=== PATIENT | male | born 1960 | race Caucasian/White ===

== ENCOUNTER 2022-06-15 21:35 | Inpatient (IN) ==
[2022-06-15 22:16] LABS: Basophils # 0.1 K/mcL (0.0-0.2); Basophils % 0.5 %; Eosinophils # 0.3 K/mcL (0.0-0.6); Hematocrit 44.1 % (37.5-50.1); Hemoglobin 14.5 g/dL (12.9-16.9); Immature Granulocytes % 0.3 % (0-4); Lymphocytes # 3.6 K/mcL (0.6-4.6); Lymphocytes % 20.7 %; Mean Corpuscular HGB Conc 32.9 g/dL (31.6-35.5); Mean Corpuscular Volume 94.2 fL (83.0-100.0); Monocytes # 1.2 K/mcL (0.0-1.3); Monocytes % 6.6 %; Neutrophils # 12.1 K/mcL (1.6-8.9); Platelet Count 204 K/mcL (140-400); Red Blood Count 4.68 M/mcL (4.19-5.50); Red Cell Distribution Width 14.8 % (11.5-14.5); Segmented Neutrophils % 69.9 %; White Blood Count 17.4 K/mcL (4.3-11.1)
[2022-06-15 22:37] LABS: BUN/Creatinine Ratio 15 (6-26); Blood Urea Nitrogen 20 mg/dL (8-23); Calcium 9.4 mg/dL (8.6-10.3); Carbon Dioxide 24 mEq/L (23-29); Chloride 106 mEq/L (98-107); Glucose 106 mg/dL (70-105); Osmolality,Calculated 291 (280-300); Sodium 139 mEq/L (136-145); eGFR For African Americans > 60 (> 60); eGFR For Non-African Americans 53 (> 60)
[2022-06-15 22:38] LABS: Troponin I < 0.03 ng/mL (< 0.04)
[2022-06-16] MEDS ORDERED: Ondansetron 4 MG/2 ML VIAL IVP PRN ×3 (00:49→13:33)
[2022-06-16] MEDS ORDERED: Pantoprazole 40 MG VIAL IVP ONE (03:24)
[2022-06-16] MEDS ORDERED: Piperacillin/Tazobactam 3.375 GM in 0.9 % Sodium Chloride Mini Bag 100 ML IVPB ONE (03:24)
[2022-06-16] MEDS ORDERED: Morphine Sulfate 2 MG/ML SYRINGE IVP ONE ×2 (03:25→06:58)
[2022-06-16] MEDS ORDERED: Metoclopramide 10 MG/2 ML VIAL IVP ONE (03:25)
[2022-06-16] MEDS ORDERED: 0.9 % Sodium Chloride 1,000 ML IV ONE ×2 (03:28→06:58)
[2022-06-16] MEDS ORDERED: Iopamidol - 370 500 ML MLS IVP ONE (06:04)
[2022-06-16] MEDS ORDERED: Heparin 1,000 UNITS/500 mL 500 ML ONE (07:23)
[2022-06-16] MEDS ORDERED: *HR* Norepinephrine 4 MG/4 ML VIAL IVC ONE (07:46)
[2022-06-16] MEDS ORDERED: *HR* Vasopressin 20 UNIT/ML VIAL ONE (07:47)
[2022-06-16] MEDS ORDERED: *HR* Rocuronium Bromide 50 MG/5 ML VIAL ONE ×4 (08:53→12:11)
[2022-06-16] MEDS ORDERED: *HR* FentaNYL (PF) 100 MCG/2 ML VIAL ONE ×3 (08:57→11:02)
[2022-06-16] MEDS ORDERED: *HR* Propofol 200 MG/20 ML VIAL IVP ONE (09:07)
[2022-06-16] MEDS ORDERED: Lidocaine -MPF 2% 5 ML VIAL ONE (09:09)
[2022-06-16] MEDS ORDERED: Ondansetron 4 MG/2 ML VIAL ONE (09:09)
[2022-06-16] MEDS ORDERED: Sugammadex Sodium 200 MG/2 ML VIAL IV ONE (12:25)
[2022-06-16] MEDS ORDERED: *HR* HYDROMORPHONE 2 MG/ML VIAL ONE (12:41)
[2022-06-16] MEDS ORDERED: *HR* HYDROmorphone PCA *PREMADE* 20 MG/1MG/ML (20mL) PCA VIAL IVC SCH (13:33)
[2022-06-16] MEDS ORDERED: Naloxone 0.4 MG/ML INJ IVP PRN (13:33)
[2022-06-16] MEDS: 0.9 % Sodium Chloride 1,000 ML IVC SCH ×2 (14:22→21:59)
[2022-06-16] MEDS: *HR* Heparin 5,000 UNIT/ML VIAL SQ SCH ×2 (14:23→21:06)
[2022-06-16 14:30] LABS: Hematocrit 41.7 % (37.5-50.1); Hemoglobin 13.5 g/dL (12.9-16.9); Mean Corpuscular HGB Conc 32.4 g/dL (31.6-35.5); Mean Corpuscular Hemoglobin 30.5 pg (28.0-33.3); Mean Corpuscular Volume 94.3 fL (83.0-100.0); Mean Platelet Volume 10.2 fL (9.4-12.4); Platelet Count 170 K/mcL (140-400); Red Blood Count 4.42 M/mcL (4.19-5.50); White Blood Count 18.8 K/mcL (4.3-11.1)
[2022-06-16 14:49] LABS: BUN/Creatinine Ratio 16 (6-26); Blood Urea Nitrogen 17 mg/dL (8-23); Calcium 7.8 mg/dL (8.6-10.3); Carbon Dioxide 21 mEq/L (23-29); Chloride 108 mEq/L (98-107); Glucose 171 mg/dL (70-105); Magnesium 1.2 mg/dL (1.6-2.6); Osmolality,Calculated 290 (280-300); Phosphorous 3.7 mg/dL (2.7-4.5); Potassium 4.5 mEq/L (3.5-5.1); Sodium 137 mEq/L (136-145); eGFR For African Americans > 60 (> 60); eGFR For Non-African Americans > 60 (> 60)
[2022-06-16] MEDS: Ipratropium/Albuterol Neb 3 ML IH SCH ×3 (15:35→23:31)
[2022-06-16] MEDS: Piperacillin/Tazobactam 3.375 GM in 0.9 % Sodium Chloride Mini Bag 100 ML IVPB SCH ×2 (15:48→23:31)
[2022-06-16] MEDS ORDERED: Naloxone 0.4 MG/ML INJ IVP ONE (17:33)
[2022-06-16 17:50] LABS: ABG Base Excess -6 mEq/L (-2 to 3); ABG HCO3 19 mEq/L (21-27); ABG Oxygen Saturation 92 % (95-98); ABG PCO2 35 mmHg (35-45); ABG PH 7.35 pH Units (7.32-7.45); ABG PO2 65 mmHg (85-104); ABG TCO2 20 mEq/L (20-26)
[2022-06-16] MEDS ORDERED: *HR* Metoprolol 5 MG/5 ML VIAL IVP SCH (18:00)
[2022-06-17] MEDS: Ipratropium/Albuterol Neb 3 ML IH SCH ×6 (03:41→22:53)
[2022-06-17] MEDS: *HR* HYDROmorphone (PF) 1 MG/ML SYRINGE IVP PRN ×2 (04:52→08:05)
[2022-06-17 05:05] LABS: Hematocrit 37.4 % (37.5-50.1); Hemoglobin 12.5 g/dL (12.9-16.9); Mean Corpuscular HGB Conc 33.4 g/dL (31.6-35.5); Mean Corpuscular Hemoglobin 31.3 pg (28.0-33.3); Mean Corpuscular Volume 93.7 fL (83.0-100.0); Platelet Count 155 K/mcL (140-400); Red Blood Count 3.99 M/mcL (4.19-5.50); Red Cell Distribution Width 15.1 % (11.5-14.5); White Blood Count 17.5 K/mcL (4.3-11.1)
[2022-06-17] MEDS: *HR* Heparin 5,000 UNIT/ML VIAL SQ SCH ×3 (05:11→22:33)
[2022-06-17] MEDS: 0.9 % Sodium Chloride 1,000 ML IVC SCH ×2 (05:12→14:22)
[2022-06-17 05:25] LABS: BUN/Creatinine Ratio 16 (6-26); Blood Urea Nitrogen 15 mg/dL (8-23); Calcium 7.6 mg/dL (8.6-10.3); Carbon Dioxide 20 mEq/L (23-29); Chloride 109 mEq/L (98-107); Glucose 145 mg/dL (70-105); Magnesium 2.3 mg/dL (1.6-2.6); Osmolality,Calculated 285 (280-300); Phosphorous 2.9 mg/dL (2.7-4.5); Potassium 4.3 mEq/L (3.5-5.1); Sodium 136 mEq/L (136-145); eGFR For African Americans > 60 (> 60); eGFR For Non-African Americans > 60 (> 60)
[2022-06-17] MEDS: Piperacillin/Tazobactam 3.375 GM in 0.9 % Sodium Chloride Mini Bag 100 ML IVPB SCH ×2 (08:07→17:30)
[2022-06-17] MEDS: Fluconazole 400 MG/200 ML 400 MG/200 ML BAG IVPB SCH (08:13)
[2022-06-17] MEDS: Pantoprazole 40 MG VIAL IVP SCH (08:14)
[2022-06-17] MEDS ORDERED: Fluconazole 400 MG/200 ML 400 MG/200 ML BAG IVPB ONE (09:30)
[2022-06-17] MEDS: *HR* HYDROmorphone PCA *PREMADE* 20 MG/1MG/ML (20mL) PCA VIAL IVC SCH (11:11)
[2022-06-17] MEDS ORDERED: *HR* Dextrose 50 % in Water (Syg) 50 ML SYRINGE IVP PRN (11:37)
[2022-06-17] MEDS ORDERED: D5% in Water 1,000 ML IVC PRN (11:37)
[2022-06-17] MEDS ORDERED: Dextrose Gel 15 GM/37.5 ML TUBE PO PRN ×2 (11:37)
[2022-06-17] MEDS: *HR* Metoprolol 5 MG/5 ML VIAL IVP SCH ×2 (13:11→18:03)
[2022-06-17] MEDS: Insulin LISPRO 300 UNITS/3 ML VIAL SUBQ SCH ×2 (13:12→17:42)
[2022-06-17] MEDS ORDERED: 0.9 % Sodium Chloride 1,000 ML ONE (13:44)
[2022-06-17] MEDS ORDERED: [UNRECOGNIZED DRUG - OTHER] IV SCH (17:00)
[2022-06-17] MEDS ORDERED: AMINO ACIDS IV SCH (17:00)
[2022-06-17] MEDS ORDERED: Clinimix E 5%-15% SOLUTION 2,000 ML with MVI, adult with vitamin K 10 ML IV SCH (17:00)
[2022-06-17] MEDS ORDERED: DEXTROSE 15% IV SCH (17:00)
[2022-06-17] MEDS ORDERED: MVI IV SCH (17:00)
[2022-06-18] MEDS: Piperacillin/Tazobactam 3.375 GM in 0.9 % Sodium Chloride Mini Bag 100 ML IVPB SCH ×4 (00:18→23:10)
[2022-06-18] MEDS: Insulin LISPRO 300 UNITS/3 ML VIAL SUBQ SCH ×5 (00:19→23:09)
[2022-06-18] MEDS: *HR* Metoprolol 5 MG/5 ML VIAL IVP SCH ×5 (00:20→23:09)
[2022-06-18 04:13] LABS: Hematocrit 31.9 % (37.5-50.1); Mean Corpuscular HGB Conc 32.9 g/dL (31.6-35.5); Mean Corpuscular Hemoglobin 31.2 pg (28.0-33.3); Mean Corpuscular Volume 94.7 fL (83.0-100.0); Mean Platelet Volume 10.3 fL (9.4-12.4); Platelet Count 136 K/mcL (140-400); Red Blood Count 3.37 M/mcL (4.19-5.50); Red Cell Distribution Width 15.3 % (11.5-14.5); White Blood Count 16.1 K/mcL (4.3-11.1)
[2022-06-18 04:17] LABS: Hemoglobin 10.5 g/dL (12.9-16.9)
[2022-06-18] MEDS: Ipratropium/Albuterol Neb 3 ML IH SCH ×7 (04:22→23:23)
[2022-06-18 04:37] LABS: BUN/Creatinine Ratio 22 (6-26); Blood Urea Nitrogen 19 mg/dL (8-23); Carbon Dioxide 25 mEq/L (23-29); Chloride 107 mEq/L (98-107); Chol/HDL Ratio 4.1 (0-4.9); Cholesterol 103 mg/dL (< 200); Glucose 142 mg/dL (70-105); HDL Cholesterol 25 mg/dL (40-59); LDL Cholesterol,Calculated 35 mg/dL (< 100); Magnesium 2.1 mg/dL (1.6-2.6); Osmolality,Calculated 287 (280-300); Phosphorous 2.3 mg/dL (2.7-4.5); Potassium 3.7 mEq/L (3.5-5.1); Sodium 136 mEq/L (136-145); Triglycerides 214 mg/dL (< 150); Vancomycin,Trough 12 mcg/mL (5-10); eGFR For African Americans > 60 (> 60); eGFR For Non-African Americans > 60 (> 60)
[2022-06-18] MEDS: *HR* Heparin 5,000 UNIT/ML VIAL SQ SCH ×3 (05:24→21:06)
[2022-06-18] MEDS: Fluconazole 400 MG/200 ML 400 MG/200 ML BAG IVPB SCH (07:53)
[2022-06-18] MEDS: Pantoprazole 40 MG VIAL IVP SCH (07:53)
[2022-06-18] MEDS: 0.9 % Sodium Chloride 1,000 ML IVC SCH (11:50)
[2022-06-18] MEDS ORDERED: Clinimix E 5%-15% SOLUTION 2,000 ML with MVI, adult with vitamin K 10 ML IV SCH (17:00)
[2022-06-18] MEDS: *HR* HYDROmorphone PCA *PREMADE* 20 MG/1MG/ML (20mL) PCA VIAL IVC SCH (20:19)
[2022-06-19 03:27] LABS: Hematocrit 33.3 % (37.5-50.1); Hemoglobin 11.1 g/dL (12.9-16.9); Mean Corpuscular HGB Conc 33.3 g/dL (31.6-35.5); Mean Corpuscular Hemoglobin 31.3 pg (28.0-33.3); Mean Corpuscular Volume 93.8 fL (83.0-100.0); Mean Platelet Volume 10.5 fL (9.4-12.4); Platelet Count 140 K/mcL (140-400); Red Blood Count 3.55 M/mcL (4.19-5.50); Red Cell Distribution Width 14.8 % (11.5-14.5); White Blood Count 15.9 K/mcL (4.3-11.1)
[2022-06-19] MEDS: Ipratropium/Albuterol Neb 3 ML IH SCH ×6 (03:30→23:11)
[2022-06-19 03:46] LABS: BUN/Creatinine Ratio 23 (6-26); Blood Urea Nitrogen 19 mg/dL (8-23); Calcium 8.6 mg/dL (8.6-10.3); Carbon Dioxide 24 mEq/L (23-29); Chloride 103 mEq/L (98-107); Glucose 111 mg/dL (70-105); Magnesium 1.8 mg/dL (1.6-2.6); Osmolality,Calculated 283 (280-300); Phosphorous 2.8 mg/dL (2.7-4.5); Potassium 4.5 mEq/L (3.5-5.1); Sodium 135 mEq/L (136-145); eGFR For African Americans > 60 (> 60); eGFR For Non-African Americans > 60 (> 60)
[2022-06-19] MEDS: *HR* Metoprolol 5 MG/5 ML VIAL IVP SCH ×3 (05:00→18:08)
[2022-06-19] MEDS: *HR* Heparin 5,000 UNIT/ML VIAL SQ SCH ×3 (05:01→22:42)
[2022-06-19] MEDS: Insulin LISPRO 300 UNITS/3 ML VIAL SUBQ SCH ×4 (05:01→22:43)
[2022-06-19] MEDS: Piperacillin/Tazobactam 3.375 GM in 0.9 % Sodium Chloride Mini Bag 100 ML IVPB SCH ×2 (07:56→16:05)
[2022-06-19] MEDS: Fluconazole 400 MG/200 ML 400 MG/200 ML BAG IVPB SCH (07:57)
[2022-06-19] MEDS: Pantoprazole 40 MG VIAL IVP SCH (07:57)
[2022-06-19] MEDS: 0.9 % Sodium Chloride 1,000 ML IVC SCH (12:07)
[2022-06-19] MEDS: *HR* HYDROmorphone PCA *PREMADE* 20 MG/1MG/ML (20mL) PCA VIAL IVC SCH (16:56)
[2022-06-19] MEDS ORDERED: Clinimix E 5%-15% SOLUTION 2,000 ML with MVI, adult with vitamin K 10 ML IV SCH (17:00)
[2022-06-20] MEDS: Piperacillin/Tazobactam 3.375 GM in 0.9 % Sodium Chloride Mini Bag 100 ML IVPB SCH ×3 (00:29→16:01)
[2022-06-20] MEDS: *HR* Metoprolol 5 MG/5 ML VIAL IVP SCH ×5 (00:30→21:12)
[2022-06-20] MEDS: Ipratropium/Albuterol Neb 3 ML IH SCH ×6 (04:44→23:02)
[2022-06-20] MEDS: *HR* Heparin 5,000 UNIT/ML VIAL SQ SCH ×2 (05:04→14:05)
[2022-06-20] MEDS: Insulin LISPRO 300 UNITS/3 ML VIAL SUBQ SCH ×3 (05:05→18:06)
[2022-06-20 07:19] LABS: Hematocrit 35.5 % (37.5-50.1); Hemoglobin 11.9 g/dL (12.9-16.9); Immature Platelets 4.5 % (1.1-6.1); Mean Corpuscular HGB Conc 33.5 g/dL (31.6-35.5); Mean Corpuscular Hemoglobin 30.9 pg (28.0-33.3); Mean Corpuscular Volume 92.2 fL (83.0-100.0); Mean Platelet Volume 10.2 fL (9.4-12.4); Red Blood Count 3.85 M/mcL (4.19-5.50); Red Cell Distribution Width 14.7 % (11.5-14.5); White Blood Count 11.6 K/mcL (4.3-11.1)
[2022-06-20 07:29] LABS: BUN/Creatinine Ratio 24 (6-26); Blood Urea Nitrogen 20 mg/dL (8-23); Calcium 8.8 mg/dL (8.6-10.3); Carbon Dioxide 21 mEq/L (23-29); Chloride 105 mEq/L (98-107); Glucose 106 mg/dL (70-105); Magnesium 1.7 mg/dL (1.6-2.6); Osmolality,Calculated 285 (280-300); Phosphorous 3.8 mg/dL (2.7-4.5); Potassium 4.1 mEq/L (3.5-5.1); Sodium 136 mEq/L (136-145); eGFR For African Americans > 60 (> 60); eGFR For Non-African Americans > 60 (> 60)
[2022-06-20] MEDS: Fluconazole 400 MG/200 ML 400 MG/200 ML BAG IVPB SCH (08:24)
[2022-06-20] MEDS: Pantoprazole 40 MG VIAL IVP SCH (08:24)
[2022-06-20] MEDS: 0.9 % Sodium Chloride 1,000 ML IVC SCH (11:59)
[2022-06-20] MEDS ORDERED: Lidocaine -MPF 1% 5 ML AMPUL INFILT ONE (12:53)
[2022-06-20] MEDS: Nicotine 21 MG PATCH.TD24 TD SCH (16:02)
[2022-06-20] MEDS ORDERED: Clinimix E 5%-15% SOLUTION 2,000 ML with MVI, adult with vitamin K 10 ML IV SCH (17:00)
[2022-06-21] MEDS: *HR* Heparin 5,000 UNIT/ML VIAL SQ SCH ×4 (00:07→22:09)
[2022-06-21] MEDS: *HR* Metoprolol 5 MG/5 ML VIAL IVP SCH ×5 (00:07→23:57)
[2022-06-21] MEDS: Piperacillin/Tazobactam 3.375 GM in 0.9 % Sodium Chloride Mini Bag 100 ML IVPB SCH ×4 (00:07→23:57)
[2022-06-21] MEDS: *HR* HYDROmorphone PCA *PREMADE* 20 MG/1MG/ML (20mL) PCA VIAL IVC SCH ×2 (00:10→22:08)
[2022-06-21] MEDS: Insulin LISPRO 300 UNITS/3 ML VIAL SUBQ SCH ×5 (00:11→23:59)
[2022-06-21] MEDS: Ipratropium/Albuterol Neb 3 ML IH SCH ×6 (03:36→23:42)
[2022-06-21 03:52] LABS: Hemoglobin 11.7 g/dL (12.9-16.9); Mean Corpuscular HGB Conc 33.4 g/dL (31.6-35.5); Mean Corpuscular Volume 92.8 fL (83.0-100.0); Mean Platelet Volume 10.4 fL (9.4-12.4); Platelet Count 167 K/mcL (140-400); Red Blood Count 3.77 M/mcL (4.19-5.50); Red Cell Distribution Width 14.7 % (11.5-14.5); White Blood Count 11.8 K/mcL (4.3-11.1)
[2022-06-21 05:06] LABS: BUN/Creatinine Ratio 23 (6-26); Blood Urea Nitrogen 20 mg/dL (8-23); Calcium 9.1 mg/dL (8.6-10.3); Carbon Dioxide 23 mEq/L (23-29); Chloride 102 mEq/L (98-107); Glucose 190 mg/dL (70-105); Magnesium 1.8 mg/dL (1.6-2.6); Osmolality,Calculated 288 (280-300); Phosphorous 4.2 mg/dL (2.7-4.5); Potassium 3.8 mEq/L (3.5-5.1); Sodium 135 mEq/L (136-145); eGFR For African Americans > 60 (> 60); eGFR For Non-African Americans > 60 (> 60)
[2022-06-21] MEDS: Pantoprazole 40 MG VIAL IVP SCH (09:49)
[2022-06-21] MEDS: Nicotine 21 MG PATCH.TD24 TD SCH (10:04)
[2022-06-21] MEDS: Fluconazole 400 MG/200 ML 400 MG/200 ML BAG IVPB SCH (11:23)
[2022-06-21] MEDS: 0.9 % Sodium Chloride 1,000 ML IVC SCH (13:48)
[2022-06-21] MEDS ORDERED: Clinimix E 5%-15% SOLUTION 2,000 ML with MVI, adult with vitamin K 10 ML IV SCH (17:00)
[2022-06-22] MEDS: Insulin LISPRO 300 UNITS/3 ML VIAL SUBQ SCH (04:15)
[2022-06-22] MEDS: Ipratropium/Albuterol Neb 3 ML IH SCH ×6 (04:31→22:54)
[2022-06-22 04:33] LABS: Hematocrit 34.8 % (37.5-50.1); Hemoglobin 11.5 g/dL (12.9-16.9); Mean Corpuscular Hemoglobin 30.2 pg (28.0-33.3); Mean Corpuscular Volume 91.3 fL (83.0-100.0); Mean Platelet Volume 10.7 fL (9.4-12.4); Platelet Count 170 K/mcL (140-400); Red Blood Count 3.81 M/mcL (4.19-5.50); Red Cell Distribution Width 14.6 % (11.5-14.5); White Blood Count 14.9 K/mcL (4.3-11.1)
[2022-06-22 04:47] LABS: BUN/Creatinine Ratio 26 (6-26); Blood Urea Nitrogen 21 mg/dL (8-23); Calcium 8.8 mg/dL (8.6-10.3); Carbon Dioxide 21 mEq/L (23-29); Chloride 103 mEq/L (98-107); Glucose 133 mg/dL (70-105); Magnesium 1.8 mg/dL (1.6-2.6); Osmolality,Calculated 283 (280-300); Phosphorous 3.9 mg/dL (2.7-4.5); Potassium 3.8 mEq/L (3.5-5.1); Sodium 134 mEq/L (136-145); eGFR For African Americans > 60 (> 60); eGFR For Non-African Americans > 60 (> 60)
[2022-06-22] MEDS: *HR* Metoprolol 5 MG/5 ML VIAL IVP SCH ×3 (05:32→17:15)
[2022-06-22] MEDS: *HR* Heparin 5,000 UNIT/ML VIAL SQ SCH ×3 (05:32→20:26)
[2022-06-22] MEDS: *HR* HYDROmorphone PCA *PREMADE* 20 MG/1MG/ML (20mL) PCA VIAL IVC SCH (08:01)
[2022-06-22] MEDS: Fluconazole 400 MG/200 ML 400 MG/200 ML BAG IVPB SCH (08:02)
[2022-06-22] MEDS: Nicotine 21 MG PATCH.TD24 TD SCH (08:02)
[2022-06-22] MEDS: Pantoprazole 40 MG VIAL IVP SCH (08:02)
[2022-06-22] MEDS: Piperacillin/Tazobactam 3.375 GM in 0.9 % Sodium Chloride Mini Bag 100 ML IVPB SCH ×2 (08:03→17:16)
[2022-06-22] MEDS ORDERED: *HR* OxyCODONE Oral Soln 5 MG/5 ML UD.LIQ PO PRN (10:48)
[2022-06-22] MEDS: Docusate Oral Soln 100 MG/10 ML UDC PO SCH ×2 (12:30→20:20)
[2022-06-22] MEDS ORDERED: Clinimix E 5%-15% SOLUTION 2,000 ML with MVI, adult with vitamin K 10 ML IV SCH (17:00)
[2022-06-23] MEDS: *HR* Metoprolol 5 MG/5 ML VIAL IVP SCH ×4 (00:38→16:18)
[2022-06-23] MEDS: Piperacillin/Tazobactam 3.375 GM in 0.9 % Sodium Chloride Mini Bag 100 ML IVPB SCH ×2 (00:38→07:20)
[2022-06-23] MEDS: Ipratropium/Albuterol Neb 3 ML IH SCH ×6 (04:02→23:41)
[2022-06-23 04:59] LABS: Hematocrit 34.3 % (37.5-50.1); Hemoglobin 11.3 g/dL (12.9-16.9); Mean Corpuscular HGB Conc 32.9 g/dL (31.6-35.5); Mean Corpuscular Hemoglobin 30.5 pg (28.0-33.3); Mean Corpuscular Volume 92.5 fL (83.0-100.0); Mean Platelet Volume 10.7 fL (9.4-12.4); Platelet Count 178 K/mcL (140-400); Red Blood Count 3.71 M/mcL (4.19-5.50); Red Cell Distribution Width 14.8 % (11.5-14.5); White Blood Count 17.8 K/mcL (4.3-11.1)
[2022-06-23 05:37] LABS: BUN/Creatinine Ratio 25 (6-26); Blood Urea Nitrogen 22 mg/dL (8-23); Calcium 8.8 mg/dL (8.6-10.3); Carbon Dioxide 18 mEq/L (23-29); Chloride 106 mEq/L (98-107); Glucose 99 mg/dL (70-105); Magnesium 1.8 mg/dL (1.6-2.6); Osmolality,Calculated 283 (280-300); Phosphorous 3.6 mg/dL (2.7-4.5); Potassium 3.7 mEq/L (3.5-5.1); Sodium 135 mEq/L (136-145); eGFR For African Americans > 60 (> 60); eGFR For Non-African Americans > 60 (> 60)
[2022-06-23] MEDS: *HR* Heparin 5,000 UNIT/ML VIAL SQ SCH ×3 (06:01→21:54)
[2022-06-23] MEDS: Docusate Oral Soln 100 MG/10 ML UDC PO SCH (07:06)
[2022-06-23] MEDS: Fluconazole 400 MG/200 ML 400 MG/200 ML BAG IVPB SCH (07:19)
[2022-06-23] MEDS: Pantoprazole 40 MG VIAL IVP SCH (07:20)
[2022-06-23] MEDS ORDERED: Iopamidol - 370 500 ML MLS IVP ONE (08:14)
[2022-06-23] MEDS: Nicotine 21 MG PATCH.TD24 TD SCH (08:31)
[2022-06-23] MEDS ORDERED: metroNIDAZOLE 500 MG TABLET PO SCH (09:00)
[2022-06-23] MEDS: Vancomycin Oral Soln 125 MG/2.5 ML UDC PO SCH ×4 (09:15→22:11)
[2022-06-23] MEDS ORDERED: Iopamidol - 370 500 ML MLS PO ONE (10:50)
[2022-06-23] MEDS: 0.9 % Sodium Chloride 1,000 ML IVC SCH (12:15)
[2022-06-24] MEDS: *HR* Metoprolol 5 MG/5 ML VIAL IVP SCH ×2 (01:26→06:33)
[2022-06-24 02:05] LABS: Hematocrit 33.2 % (37.5-50.1); Hemoglobin 10.8 g/dL (12.9-16.9); Mean Corpuscular HGB Conc 32.5 g/dL (31.6-35.5); Mean Corpuscular Hemoglobin 30.2 pg (28.0-33.3); Mean Corpuscular Volume 92.7 fL (83.0-100.0); Mean Platelet Volume 10.6 fL (9.4-12.4); Platelet Count 194 K/mcL (140-400); Red Blood Count 3.58 M/mcL (4.19-5.50); Red Cell Distribution Width 14.9 % (11.5-14.5); White Blood Count 14.1 K/mcL (4.3-11.1)
[2022-06-24 02:28] LABS: BUN/Creatinine Ratio 20 (6-26); Blood Urea Nitrogen 18 mg/dL (8-23); Calcium 8.6 mg/dL (8.6-10.3); Carbon Dioxide 20 mEq/L (23-29); Chloride 105 mEq/L (98-107); Glucose 113 mg/dL (70-105); Osmolality,Calculated 283 (280-300); Phosphorous 3.8 mg/dL (2.7-4.5); Potassium 4.2 mEq/L (3.5-5.1); Sodium 135 mEq/L (136-145); eGFR For African Americans > 60 (> 60); eGFR For Non-African Americans > 60 (> 60)
[2022-06-24] MEDS: Ipratropium/Albuterol Neb 3 ML IH SCH ×6 (04:02→19:59)
[2022-06-24] MEDS: *HR* Heparin 5,000 UNIT/ML VIAL SQ SCH ×3 (06:33→21:17)
[2022-06-24] MEDS: Nicotine 21 MG PATCH.TD24 TD SCH (08:47)
[2022-06-24] MEDS: Pantoprazole 40 MG VIAL IVP SCH (08:49)
[2022-06-24] MEDS: Vancomycin Oral Soln 125 MG/2.5 ML UDC PO SCH ×4 (08:49→21:49)
[2022-06-24] MEDS ORDERED: cefOXitin 1,000 MG, Sodium Chloride IRRigation 1,000 ML IR ONE (09:00)
[2022-06-24] MEDS: Metoprolol XL (24 HR) Succ 25 MG TAB.ER.24H PO SCH (11:30)
[2022-06-24] MEDS: amLODIPine 5 MG TABLET PO SCH (11:31)
[2022-06-24] MEDS: 0.9 % Sodium Chloride 1,000 ML IVC SCH (11:33)
[2022-06-25] MEDS: *HR* Heparin 5,000 UNIT/ML VIAL SQ SCH ×4 (05:27→22:43)
[2022-06-25 06:01] LABS: Hematocrit 29.2 % (37.5-50.1); Hemoglobin 9.5 g/dL (12.9-16.9); Mean Corpuscular HGB Conc 32.5 g/dL (31.6-35.5); Mean Corpuscular Hemoglobin 30.9 pg (28.0-33.3); Mean Corpuscular Volume 95.1 fL (83.0-100.0); Mean Platelet Volume 10.5 fL (9.4-12.4); Platelet Count 188 K/mcL (140-400); Red Blood Count 3.07 M/mcL (4.19-5.50); Red Cell Distribution Width 15.1 % (11.5-14.5)
[2022-06-25 06:19] LABS: BUN/Creatinine Ratio 20 (6-26); Blood Urea Nitrogen 16 mg/dL (8-23); Calcium 7.4 mg/dL (8.6-10.3); Carbon Dioxide 20 mEq/L (23-29); Chloride 110 mEq/L (98-107); Glucose 97 mg/dL (70-105); Magnesium 1.6 mg/dL (1.6-2.6); Osmolality,Calculated 285 (280-300); Phosphorous 3.2 mg/dL (2.7-4.5); Potassium 3.5 mEq/L (3.5-5.1); Sodium 137 mEq/L (136-145); eGFR For African Americans > 60 (> 60); eGFR For Non-African Americans > 60 (> 60)
[2022-06-25] MEDS: Ipratropium/Albuterol Neb 3 ML IH SCH ×4 (07:46→20:36)
[2022-06-25] MEDS: amLODIPine 5 MG TABLET PO SCH (09:33)
[2022-06-25] MEDS: Metoprolol XL (24 HR) Succ 25 MG TAB.ER.24H PO SCH (09:33)
[2022-06-25] MEDS: Nicotine 21 MG PATCH.TD24 TD SCH (09:33)
[2022-06-25] MEDS: Vancomycin Oral Soln 125 MG/2.5 ML UDC PO SCH ×4 (09:34→20:08)
[2022-06-25] MEDS ORDERED: Potassium Chloride Elixir 20 MEQ/15 ML UDC GTUBE ONE (11:00)
[2022-06-25] MEDS ORDERED: Ondansetron 4 MG/2 ML VIAL IVP PRN (21:58)
[2022-06-25] MEDS ORDERED: Naloxone 0.4 MG/ML INJ IVP PRN (21:58)
[2022-06-26] MEDS: Ipratropium/Albuterol Neb 3 ML IH SCH ×6 (00:22→20:12)
[2022-06-26] MEDS: *HR* Heparin 5,000 UNIT/ML VIAL SQ SCH ×3 (05:31→21:58)
[2022-06-26 05:49] LABS: Hematocrit 34.1 % (37.5-50.1); Mean Corpuscular HGB Conc 33.1 g/dL (31.6-35.5); Mean Corpuscular Hemoglobin 31.1 pg (28.0-33.3); Mean Corpuscular Volume 93.9 fL (83.0-100.0); Mean Platelet Volume 10.5 fL (9.4-12.4); Platelet Count 244 K/mcL (140-400); Red Blood Count 3.63 M/mcL (4.19-5.50); Red Cell Distribution Width 14.9 % (11.5-14.5)
[2022-06-26 05:50] LABS: Hemoglobin 11.3 g/dL (12.9-16.9)
[2022-06-26 06:12] LABS: BUN/Creatinine Ratio 18 (6-26); Blood Urea Nitrogen 19 mg/dL (8-23); Calcium 8.6 mg/dL (8.6-10.3); Carbon Dioxide 20 mEq/L (23-29); Chloride 104 mEq/L (98-107); Glucose 113 mg/dL (70-105); Magnesium 2.2 mg/dL (1.6-2.6); Osmolality,Calculated 281 (280-300); Sodium 134 mEq/L (136-145); eGFR For African Americans > 60 (> 60); eGFR For Non-African Americans > 60 (> 60)
[2022-06-26] MEDS: amLODIPine 5 MG TABLET PO SCH (08:23)
[2022-06-26] MEDS: Metoprolol XL (24 HR) Succ 25 MG TAB.ER.24H PO SCH (08:23)
[2022-06-26] MEDS: Nicotine 21 MG PATCH.TD24 TD SCH (08:23)
[2022-06-26] MEDS: Vancomycin Oral Soln 125 MG/2.5 ML UDC PO SCH ×4 (12:18→20:11)
[2022-06-26] MEDS: *HR* OxyCODONE Oral Soln 5 MG/5 ML UD.LIQ PO PRN ×2 (17:18→21:58)
[2022-06-27] MEDS: Ipratropium/Albuterol Neb 3 ML IH SCH ×4 (00:14→11:04)
[2022-06-27] MEDS: *HR* Heparin 5,000 UNIT/ML VIAL SQ SCH ×2 (05:27→15:00)
[2022-06-27 06:18] LABS: Basophils # 0.1 K/mcL (0.0-0.2); Basophils % 0.8 %; Eosinophils # 0.4 K/mcL (0.0-0.6); Hematocrit 32.3 % (37.5-50.1); Hemoglobin 10.5 g/dL (12.9-16.9); Immature Granulocytes % 1.9 % (0-4); Lymphocytes # 2.9 K/mcL (0.6-4.6); Lymphocytes % 21.6 %; Mean Corpuscular HGB Conc 32.5 g/dL (31.6-35.5); Mean Corpuscular Hemoglobin 30.5 pg (28.0-33.3); Mean Corpuscular Volume 93.9 fL (83.0-100.0); Mean Platelet Volume 11.2 fL (9.4-12.4); Monocytes # 1.1 K/mcL (0.0-1.3); Monocytes % 8.5 %; Neutrophils # 8.7 K/mcL (1.6-8.9); Platelet Count 253 K/mcL (140-400); Red Blood Count 3.44 M/mcL (4.19-5.50); Red Cell Distribution Width 14.8 % (11.5-14.5); Segmented Neutrophils % 64.2 %; White Blood Count 13.5 K/mcL (4.3-11.1)
[2022-06-27 06:30] LABS: BUN/Creatinine Ratio 22 (6-26); Blood Urea Nitrogen 23 mg/dL (8-23); Calcium 8.6 mg/dL (8.6-10.3); Carbon Dioxide 19 mEq/L (23-29); Chloride 105 mEq/L (98-107); Glucose 107 mg/dL (70-105); Magnesium 1.9 mg/dL (1.6-2.6); Osmolality,Calculated 286 (280-300); Phosphorous 4.1 mg/dL (2.7-4.5); Potassium 3.9 mEq/L (3.5-5.1); Sodium 136 mEq/L (136-145); eGFR For African Americans > 60 (> 60); eGFR For Non-African Americans > 60 (> 60)
[2022-06-27] MEDS: Metoprolol XL (24 HR) Succ 25 MG TAB.ER.24H PO SCH (07:32)
[2022-06-27] MEDS: amLODIPine 5 MG TABLET PO SCH (07:33)
[2022-06-27] MEDS: Nicotine 21 MG PATCH.TD24 TD SCH (07:33)
[2022-06-27] MEDS: *HR* OxyCODONE Oral Soln 5 MG/5 ML UD.LIQ PO PRN (08:47)
[2022-06-27 11:11] VITALS: BP 102/80; PULSE 100; TEMP 97.6; O2SAT 86
[2022-06-27] MEDS: Vancomycin Oral Soln 125 MG/2.5 ML UDC PO SCH (12:01)
== END 2022-06-27 15:00 | disposition home or self-care (01) | DRG 327 ==
LOC: EMEROOARM 21:35 → ICNU 06-16 07:36 → 2NNU 06-25 21:49
PROVIDERS: ADMIT Thoracic Surgery (Cardiothoracic Vascular Surgery); ATTEND Thoracic Surgery (Cardiothoracic Vascular Surgery)

== ENCOUNTER 2022-07-07 22:19 | Observation (INO) ==
[2022-07-08] MEDS ORDERED: Iopamidol - 370 500 ML MLS IVP ONE (00:04)
[2022-07-08] MEDS ORDERED: Metoclopramide 10 MG/2 ML VIAL IVP ONE (00:05)
[2022-07-08 00:43] LABS: Basophils # 0.2 K/mcL (0.0-0.2); Basophils % 1.6 %; Eosinophils # 0.7 K/mcL (0.0-0.6); Eosinophils % 6.8 %; Hematocrit 35.7 % (37.5-50.1); Hemoglobin 11.7 g/dL (12.9-16.9); Immature Granulocytes % 0.4 % (0-4); Lymphocytes # 1.9 K/mcL (0.6-4.6); Lymphocytes % 17.6 %; Mean Corpuscular HGB Conc 32.8 g/dL (31.6-35.5); Mean Corpuscular Hemoglobin 30.7 pg (28.0-33.3); Mean Corpuscular Volume 93.7 fL (83.0-100.0); Mean Platelet Volume 10.3 fL (9.4-12.4); Monocytes # 0.6 K/mcL (0.0-1.3); Monocytes % 5.9 %; Neutrophils # 7.2 K/mcL (1.6-8.9); Platelet Count 281 K/mcL (140-400); Red Blood Count 3.81 M/mcL (4.19-5.50); Red Cell Distribution Width 14.8 % (11.5-14.5); Segmented Neutrophils % 67.7 %; White Blood Count 10.6 K/mcL (4.3-11.1)
[2022-07-08 01:02] LABS: Albumin 3.9 g/dL (3.5-5.7); Bilirubin,Direct 0.1 mg/dL (0.0-0.2); Bilirubin,Indirect 0.3 mg/dL (0.0-1.0); Bilirubin,Total 0.4 mg/dL (0.3-1.0); Calcium 9.3 mg/dL (8.6-10.3); Globulin 3.8 g/dL (2.4-3.5); Potassium 4.4 mEq/L (3.5-5.1); Total Protein 7.7 g/dL (6.4-8.9)
[2022-07-08 01:48] LABS: Bilirubin,Urine Negative (Negative); Blood,Urine Negative (Negative); Clarity,Urine Clear (Clear); Color,Urine Light-Yellow (Yellow); Glucose,Urine (UA) Normal (Normal); Ketones,Urine 10 mg/dL (Negative); Leukocyte Esterase,Urine Negative (Negative); Nitrite,Urine Negative (Negative); PH,Urine 5.5 pH Units (5.0-8.0); Protein,Urine 30 mg/dL (Neg-Trace); RBC,Urine 0-3 per hpf (0-3); Specific Gravity,Urine 1.028 (1.010-1.025); Urobilinogen,Urine Normal (Normal); WBC,Urine 0-3 per hpf (0-3)
[2022-07-08] MEDS ORDERED: 0.9 % Sodium Chloride 1,000 ML IVC ONE ×2 (03:13→03:39)
[2022-07-08] MEDS ORDERED: Acetaminophen 325 MG TABLET PO PRN (03:40)
[2022-07-08] MEDS ORDERED: Naloxone 0.4 MG/ML INJ IVP PRN (03:40)
[2022-07-08] MEDS ORDERED: Ondansetron 4 MG/2 ML VIAL IVP PRN (03:40)
[2022-07-08] MEDS ORDERED: Ringers Solution, Lactated 1,000 ML IVC SCH (03:45)
[2022-07-08 06:18] LABS: Basophils # 0.1 K/mcL (0.0-0.2); Basophils % 1.4 %; Eosinophils # 0.6 K/mcL (0.0-0.6); Eosinophils % 6.7 %; Hematocrit 36.1 % (37.5-50.1); Hemoglobin 11.3 g/dL (12.9-16.9); Immature Granulocytes % 0.5 % (0-4); Lymphocytes # 1.7 K/mcL (0.6-4.6); Lymphocytes % 17.9 %; Mean Corpuscular HGB Conc 31.3 g/dL (31.6-35.5); Mean Corpuscular Hemoglobin 30.2 pg (28.0-33.3); Mean Corpuscular Volume 96.5 fL (83.0-100.0); Mean Platelet Volume 10.3 fL (9.4-12.4); Monocytes # 0.6 K/mcL (0.0-1.3); Monocytes % 6.5 %; Neutrophils # 6.4 K/mcL (1.6-8.9); Platelet Count 240 K/mcL (140-400); Red Blood Count 3.74 M/mcL (4.19-5.50); Red Cell Distribution Width 14.9 % (11.5-14.5); White Blood Count 9.5 K/mcL (4.3-11.1)
[2022-07-08 06:24] LABS: Calcium 8.7 mg/dL (8.6-10.3); Magnesium 1.8 mg/dL (1.6-2.6); Potassium 4.1 mEq/L (3.5-5.1)
[2022-07-08 07:30] LABS: Adenovirus F 40/41 PCR Not detected (Not detect); Astrovirus PCR Not detected (Not detect); C.difficile Toxin A/B Gene PCR Not detected (Not detect); Campylobacter by PCR Not detected (Not detect); Cryptosporidium by PCR Not detected (Not detect); Cyclospora cayetanensis PCR Not detected (Not detect); Entamoeba histolytica PCR Not detected (Not detect); Enteroaggregative E.coli(EAEC) Not detected (Not detect); Enteropathogenic E.coli(EPEC) Not detected (Not detect); Enterotoxigenic E.coli (ETEC) Not detected (Not detect); Giardia lamblia PCR Not detected (Not detect); Norovirus GI/GII PCR Not detected (Not detect); Plesiomonas shigelloides PCR Not detected (Not detect); Rotavirus A PCR Not detected (Not detect); Salmonella PCR Not detected (Not detect); Sapovirus PCR Not detected (Not detect); Shig/EnteroinvasiveE coli EIEC Not detected (Not detect); Shigalike tox-prod E coli STEC Not detected (Not detect); Vibrio PCR Not detected (Not detect); Vibrio cholerae PCR Not detected (Not detect); Yersinia enterocolitica PCR Not detected (Not detect)
[2022-07-08] MEDS: Sodium Bicarbonate 75 MEQ in 0.45 % Sodium Chloride 1,000 ML IVC SCH ×2 (08:40→19:59)
[2022-07-09] MEDS: Sodium Bicarbonate 75 MEQ in 0.45 % Sodium Chloride 1,000 ML IVC SCH ×2 (08:18→17:50)
[2022-07-09 09:58] LABS: Basophils # 0.1 K/mcL (0.0-0.2); Basophils % 0.7 %; Eosinophils # 1.2 K/mcL (0.0-0.6); Eosinophils % 12.4 %; Hematocrit 33.8 % (37.5-50.1); Hemoglobin 11.1 g/dL (12.9-16.9); Immature Granulocytes % 0.2 % (0-4); Lymphocytes # 0.8 K/mcL (0.6-4.6); Lymphocytes % 8.1 %; Mean Corpuscular HGB Conc 32.8 g/dL (31.6-35.5); Mean Corpuscular Hemoglobin 30.2 pg (28.0-33.3); Mean Corpuscular Volume 92.1 fL (83.0-100.0); Mean Platelet Volume 10.5 fL (9.4-12.4); Monocytes # 0.8 K/mcL (0.0-1.3); Monocytes % 8.5 %; Neutrophils # 6.7 K/mcL (1.6-8.9); Platelet Count 248 K/mcL (140-400); Red Blood Count 3.67 M/mcL (4.19-5.50); Red Cell Distribution Width 14.7 % (11.5-14.5); Segmented Neutrophils % 70.1 %; White Blood Count 9.5 K/mcL (4.3-11.1)
[2022-07-09 10:15] LABS: Calcium 8.3 mg/dL (8.6-10.3); Potassium 3.7 mEq/L (3.5-5.1)
[2022-07-09] MEDS: Metoprolol XL (24 HR) Succ 25 MG TAB.ER.24H PO SCH (10:41)
[2022-07-09] MEDS: Pantoprazole 40 MG VIAL IVP SCH (14:49)
[2022-07-10 03:06] LABS: Hematocrit 31.3 % (37.5-50.1); Hemoglobin 10.7 g/dL (12.9-16.9); Mean Corpuscular HGB Conc 34.2 g/dL (31.6-35.5); Mean Corpuscular Hemoglobin 30.8 pg (28.0-33.3); Mean Corpuscular Volume 90.2 fL (83.0-100.0); Mean Platelet Volume 10.6 fL (9.4-12.4); Platelet Count 229 K/mcL (140-400); Red Blood Count 3.47 M/mcL (4.19-5.50); Red Cell Distribution Width 14.5 % (11.5-14.5); White Blood Count 9.2 K/mcL (4.3-11.1)
[2022-07-10 03:28] LABS: BUN/Creatinine Ratio 20 (6-26); Blood Urea Nitrogen 18 mg/dL (8-23); Calcium 7.8 mg/dL (8.6-10.3); Carbon Dioxide 23 mEq/L (23-29); Chloride 105 mEq/L (98-107); Glucose 93 mg/dL (70-105); Magnesium 1.4 mg/dL (1.6-2.6); Osmolality,Calculated 286 (280-300); Potassium 3.5 mEq/L (3.5-5.1); Sodium 137 mEq/L (136-145)
[2022-07-10] MEDS: Sodium Bicarbonate 75 MEQ in 0.45 % Sodium Chloride 1,000 ML IVC SCH (03:40)
[2022-07-10] MEDS: Metoprolol XL (24 HR) Succ 25 MG TAB.ER.24H PO SCH (08:08)
[2022-07-10] MEDS: Pantoprazole 40 MG VIAL IVP SCH (08:09)
[2022-07-10] MEDS ORDERED: Magnesium Sulfate 2 GM in D5% in Water 100 ML IVPB ONE (08:20)
[2022-07-10] MEDS ORDERED: Lidocaine -MPF 2% 5 ML VIAL ONE (10:14)
[2022-07-10] MEDS ORDERED: *HR* Propofol 200 MG/20 ML VIAL IVP ONE ×3 (10:15→11:09)
[2022-07-10] MEDS ORDERED: *HR* Midazolam HCl 2 MG/2 ML VIAL ONE (10:18)
[2022-07-10] MEDS ORDERED: Ondansetron 4 MG/2 ML VIAL ONE (10:19)
[2022-07-10 11:44] VITALS: BP 115/79; PULSE 69; TEMP 97.6; O2SAT 90
== END 2022-07-10 17:11 | disposition home or self-care (01) ==
LOC: EMEROOARM 22:19 → 3ANU 22:19 → SUATTDRO 07-08 04:08 → 3ANU 07-08 05:09
PROVIDERS: ADMIT Student in an Organized Health Care Education/Training Program; ATTEND Student in an Organized Health Care Education/Training Program
PROC: ENDOEBX (2022-07-10 10:00)